=== PATIENT | female | born 2000 | race Caucasian/White ===

== ENCOUNTER 2022-11-28 09:29 | Emergency (ER) | payer BC ==
[~2022-11-28] VITALS: Ht 180 cm; Wt 65.0 kg
--- NOTE | 2022-11-28 09:46 | ED Cardiac General ---
History of Present Illness General Chief Complaint: Cardiac/General Problems Stated Complaint: HEART PALPITATIONS | DIZZY Nursing Triage Note: Patient ambulatory to room 9 w c/o heart palpitations. Patient is a heart patient with Dr. Mckinley out of [place]. Patient states she called her doctor and he sent her here. hx of PSVT. Patient states when this happens she usually feels dizzy and ends up passing out when this happens. "this has been happening a lot more lately." Patient states this episode started around 0830 at work when she laid on the floor and took a salt pill. History of Present Illness Date Seen by Provider: Nov 28, 2022 Time Seen by Provider: 09:44 Initial Comments 22-year-old patient presents with history of PSVT feels like she is having heart palpitations. She reports that she felt dizzy this morning. She was at work when it happened around 830. That she sees Dr. Mckinley and [place] in [place] and called him and he sent her here. Patient currently is on her menstrual cycle. She is also has a history of smoking marijuana couple times a week. Patient denies any chest pain, fevers chills nausea vomiting. Allergies and Home Medications Allergies Coded Allergies: No Known Drug Allergies (Unverified , 11/28/22) Patient Home Medication List Home Medication List Reviewed: Yes Review of Systems Review of Systems Constitutional: No chills; dizziness; No fever Cardiovascular: Denies Chest Pain; Palpitations Gastrointestinal: No Symptoms Reported Genitourinary: See HPI Musculoskeletal: no symptoms reported Skin: no symptoms reported Psychiatric/Neurological: See HPI Endocrine: No Symptoms Reported Past [id number]-[id number] Hx Patient Social History Tobacco Use?: No Substance use?: Yes Substance type: Marijuana Substance frequency: Couple times a week Alcohol Use?: Yes Alcohol Frequency: Rarely Immunizations Up To Date First/Initial COVID19 Vaccinat: unknown COVID19 Vaccine Genetics Physician: [facility] Past Medical History Last Menstrual Period: Nov 28, 2022 Physical Exam Vital Signs Vital Signs - First Documented 11/28/22 09:35 Temp 35.8 Pulse 83 Resp 18 O2 Delivery Room Air Capillary Refill : Less Than 3 Seconds Height, Weight, BMI Height: '" Weight: lbs. oz. kg; 20.00 BMI Method: General Appearance: Anxious Neck: Non Tender, Supple Respiratory: Lungs Clear, Normal Breath Sounds Cardiovascular: Regular Rate, Rhythm, No Edema Gastrointestinal: Non Tender, Soft Neurologic/Psychiatric: Alert, Oriented x3, No Motor/Sensory Deficits, Other (anxious ) Skin: Normal Color, Warm/Dry Progress/Results/Core Measures Results/Orders Lab Results Laboratory Tests Test 11/28/22 09:40 11/28/22 10:35 Range/Units White Blood Count 7.8 4.3-11.0 10^3/uL Red Blood Count 4.81 3.80-5.11 10^6/uL Hemoglobin 15.3 11.5-16.0 g/dL Hematocrit 45 35-52 % Mean Corpuscular Volume 93 80-99 fL Mean Corpuscular Hemoglobin 32 25-34 pg Mean Corpuscular Hemoglobin Concent 34 32-36 g/dL Red Cell Distribution Width 12.2 10.0-14.5 % Platelet Count 239 130-400 10^3/uL Mean Platelet Volume 9.9 9.0-12.2 fL Immature Granulocyte % (Auto) 0 % Neutrophils (%) (Auto) 52 42-75 % Lymphocytes (%) (Auto) 37 12-44 % Monocytes (%) (Auto) 5 0-12 % Eosinophils (%) (Auto) 5 0-10 % Basophils (%) (Auto) 1 0-10 % Neutrophils # (Auto) 4.1 1.8-7.8 10^3/uL Lymphocytes # (Auto) 2.9 1.0-4.0 10^3/uL Monocytes # (Auto) 0.4 0.0-1.0 10^3/uL Eosinophils # (Auto) 0.4 H 0.0-0.3 10^3/uL Basophils # (Auto) 0.1 0.0-0.1 10^3/uL Immature Granulocyte # (Auto) 0.0 0.0-0.1 10^3/uL Sodium Level 139 135-145 MMOL/L Potassium Level 4.3 3.6-5.0 MMOL/L Chloride Level 108 H 98-107 MMOL/L Carbon Dioxide Level 22 21-32 MMOL/L Anion Gap 9 5-14 MMOL/L Blood Urea Nitrogen 12 7-18 MG/DL Creatinine 0.77 0.60-1.30 MG/DL Estimat Glomerular Filtration Rate 113 BUN/Creatinine Ratio 16 Glucose Level 88 70-105 MG/DL Calcium Level 9.6 8.5-10.1 MG/DL Corrected Calcium 8.5-10.1 MG/DL Magnesium Level 2.1 1.6-2.4 MG/DL Total Bilirubin 0.3 0.1-1.0 MG/DL Aspartate Amino Transf (AST/SGOT) 13 5-34 U/L Alanine Aminotransferase (ALT/SGPT) 15 0-55 U/L Alkaline Phosphatase 51 40-136 U/L Troponin I < 0.028 <0.028 NG/ML Total Protein 7.8 6.4-8.2 GM/DL Albumin 4.6 H 3.2-4.5 GM/DL Urine Color YELLOW Urine Clarity CLEAR Urine pH 6.0 5-9 Urine Specific [place] >=1.030 1.016-1.022 Urine Protein NEGATIVE NEGATIVE Urine Glucose (UA) NEGATIVE NEGATIVE Urine Ketones NEGATIVE NEGATIVE Urine Nitrite NEGATIVE NEGATIVE Urine Bilirubin NEGATIVE NEGATIVE Urine Urobilinogen 0.2 < = 1.0 MG/DL Urine Leukocyte Esterase NEGATIVE NEGATIVE Urine RBC (Auto) NEGATIVE NEGATIVE Urine RBC NONE /HPF Urine WBC RARE /HPF Urine Squamous Epithelial Cells 2-5 /HPF Urine Crystals PRESENT H /LPF Urine Amorphous Sediment FEW LACI URATES H /LPF Urine Bacteria TRACE /HPF Urine Casts NONE /LPF Urine Mucus SMALL H /LPF Urine Culture Indicated NO Urine Test NEGATIVE NEGATIVE Urine Opiates Screen NEGATIVE NEGATIVE Urine Oxycodone Screen NEGATIVE NEGATIVE Urine Methadone Screen NEGATIVE NEGATIVE Urine Propoxyphene Screen NEGATIVE NEGATIVE Urine Barbiturates Screen NEGATIVE NEGATIVE Ur Tricyclic Antidepressants Screen NEGATIVE NEGATIVE Urine Phencyclidine Screen NEGATIVE NEGATIVE Urine Amphetamines Screen NEGATIVE NEGATIVE Urine Methamphetamines Screen NEGATIVE NEGATIVE Urine Benzodiazepines Screen NEGATIVE NEGATIVE Urine Cocaine Screen NEGATIVE NEGATIVE Urine Cannabinoids Screen POSITIVE H NEGATIVE My Orders Orders - JAFFE,NELI L DO Cbc With Automated Diff (11/28/22 09:47) Comprehensive Metabolic Panel (11/28/22 09:47) Drug Screen Stat (Urine) (11/28/22 09:47) Hcg,Qualitative Urine (11/28/22:47) Magnesium (11/28/22 09:47) Troponin I Caprice (11/28/22:47) Ua Culture If Indicated (11/28/22 09:47) Ekg Tracing (11/28/22 09:47) Monitor-Rhythm Ecg Trace Only (11/28/22 09:47) Ns Iv 1000 Ml (Sodium Chloride 0.9%) (11/28/22 09:50) Meclizine Tablet (Antivert Tablet) (11/28/22 11:15) Medications Given in ED Current Medications Medications Dose Ordered Sig/Maxine Route Start Time Stop Time Status Last Admin Dose Admin Meclizine HCl 25 mg ONCE ONCE PO 11/28/22 11:15 11/28/22 11:16 DC 11/28/22 11:23 25 MG Vital Signs/I&O 11/28/22 09:35 Temp 35.8 Pulse 83 Resp 18 B/P (MAP) O2 Delivery Room Air Progress Progress Note : Progress Note Patient's diagnostic studies were ordered reviewed and interpreted by me. Patient's labs show no acute findings. Patient's EKG was ordered and reviewed that shows normal sinus rhythm, heart rate 86 AL 170 QRS 113. No acute ST changes or elevation. Questionable incomplete right bundle branch block. No signs of SVT or PSVT. Patient's vital signs were stable throughout her stay. Patient is on her menstrual cycle, also frequent user of marijuana. This may be contributing to her dizziness feeling along with her anxiousness and feeling of palpitations. This time patient's exam is nonconcerning. I will give her some meclizine to help with the dizziness. She also received 1000 mL bolus of IV fluids. 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 Patient was stable and discharged home Initial ECG Impression Date: Nov 28, 2022 Initial ECG Impression Time: 09:44 Initial ECG Rate: 86 Initial ECG Rhythm: Normal Sinus Initial ECG Intervals: AL (170) Comment no acute st changes or elevation, nsr Departure Impression Primary Impression: Dizziness, nonspecific Additional Impressions: Palpitation Marijuana use Disposition: 01 HOME, SELF-CARE Condition: Stable Departure-Patient Inst. Patient Instructions: Dizziness, Adult ED, Marijuana, Palpitations ED Add. Discharge Instructions: Please follow-up with your primary care provider and Dr. Mckinley as needed. Be sure to drink plenty of fluids. All discharge instructions reviewed with patient and/or family. Voiced understanding. Work/School Note: Work Release Form Date Seen in the Emergency Department: Nov 28, 2022 Return to Work: Nov 29, 2022 Restrictions: No Restrictions NELI JAFFE DO Nov 28, 2022 09:46
[2022-11-28] MEDS ORDERED: NS IV 1000 ML 1,000 ML IV STA (09:50)
[2022-11-28 10:08] LABS: BASOPHILS # (AUTO) 0.1 10^3/uL (0.0-0.1); BASOPHILS % (AUTO) 1 % (0-10); EOSINOPHILS # (AUTO) 0.4 10^3/uL (0.0-0.3); EOSINOPHILS % (AUTO) 5 % (0-10); HEMATOCRIT 45 % (35-52); HEMOGLOBIN 15.3 g/dL (11.5-16.0); LYMPHOCYTES # (AUTO) 2.9 10^3/uL (1.0-4.0); LYMPHOCYTES % (AUTO) 37 % (12-44); MEAN CORPUSCULAR HEMOGLOBIN 32 pg (25-34); MEAN CORPUSCULAR HGB CONC 34 g/dL (32-36); MEAN CORPUSCULAR VOLUME 93 fL (80-99); MEAN PLATELET VOLUME 9.9 fL (9.0-12.2); MONOCYTES # (AUTO) 0.4 10^3/uL (0.0-1.0); MONOCYTES % (AUTO) 5 % (0-12); NEUTROPHILS # (AUTO) 4.1 10^3/uL (1.8-7.8); NEUTROPHILS % (AUTO) 52 % (42-75); PLATELET COUNT 239 10^3/uL (130-400); WHITE BLOOD COUNT 7.8 10^3/uL (4.3-11.0)
[2022-11-28 10:21] LABS: ALBUMIN 4.6 GM/DL (3.2-4.5); CHLORIDE 108 MMOL/L (98-107); POTASSIUM 4.3 MMOL/L (3.6-5.0); SODIUM 139 MMOL/L (135-145)
[2022-11-28 10:22] LABS: CALCIUM 9.6 MG/DL (8.5-10.1)
[2022-11-28 10:23] LABS: GLUCOSE 88 MG/DL (70-105); TOTAL PROTEIN 7.8 GM/DL (6.4-8.2)
[2022-11-28 10:24] LABS: CARBON DIOXIDE 22 MMOL/L (21-32)
[2022-11-28 10:25] LABS: BILIRUBIN,TOTAL 0.3 MG/DL (0.1-1.0)
[2022-11-28 10:27] LABS: ALKALINE PHOSPHATASE 51 U/L (40-136); CREATININE SERUM 0.77 MG/DL (0.60-1.30); GFR ESTIMATED 113
[2022-11-28 10:28] LABS: BUN/CREATININE RATIO 16
[2022-11-28 10:30] LABS: ALANINE AMINOTRANSFERASE 15 U/L (0-55); MAGNESIUM 2.1 MG/DL (1.6-2.4)
[2022-11-28 10:47] LABS: BILIRUBIN,URINE NEGATIVE (NEGATIVE); CLARITY,URINE CLEAR; COLOR,URINE YELLOW; GLUCOSE, URINE (UA) NEGATIVE (NEGATIVE); KETONES,URINE NEGATIVE (NEGATIVE); LEUKOCYTE ESTERASE ,URINE NEGATIVE (NEGATIVE); NITRITE,URINE NEGATIVE (NEGATIVE); PROTEIN,URINE NEGATIVE (NEGATIVE)
[2022-11-28 10:55] LABS: BACTERIA,URINE TRACE /HPF; WBC,URINE RARE /HPF
[2022-11-28 10:56] LABS: AMORPHOUS SEDIMENT,UR FEW AMOR URATES /LPF
[2022-11-28 11:00] LABS: AMPHETAMINE SCREEN, URINE NEGATIVE (NEGATIVE); BARBITURATE SCREEN URINE NEGATIVE (NEGATIVE); BENZODIAZEPINES SCREEN URINE NEGATIVE (NEGATIVE); CANNABINOID SCREEN, URINE POSITIVE (NEGATIVE); COCAINE SCREEN URINE NEGATIVE (NEGATIVE); HCG,QUALITATIVE URINE NEGATIVE (NEGATIVE); METHADONE STAT NEGATIVE (NEGATIVE); OPIATE SCREEN URINE NEGATIVE (NEGATIVE); OXYCODONE STAT NEGATIVE (NEGATIVE); PROPOXYPHENE STAT NEGATIVE (NEGATIVE); TRICYCLIC ANTIDEPRESSANTS SCRE NEGATIVE (NEGATIVE)
[2022-11-28] MEDS ORDERED: MECLIZINE 25 MG (ANTIVERT) TAB PO ONE (11:15)
[2022-11-28 11:30] VITALS: BP 112/77
== END 2022-11-28 11:30 | disposition home or self-care (01) ==
LOC: ER 09:32
DX: R42 Dizziness and giddiness (principal); R00.2 Palpitations; F12.90 Cannabis use, unspecified, uncomplicated
CPT/HCPCS: 36415; 80053; 80306; 81000; 83735; 84484; 84703; 85025; 93005; 93041